=== PATIENT | male | born 1945 | race Caucasian/White ===

== ENCOUNTER 2020-07-24 14:54 | Emergency (ER) | payer BC, MEDICARE ==
[2020-07-24] MEDS ORDERED: HYDROmorphone 1 MG/ML CARPUJECT IM STA (15:15)
--- NOTE | 2020-07-24 15:16 | ED Physician Documentation ---
History of Present Illness - Stated complaint Stated Complaint: RIGHT HAND INJ - Chief complaint Chief Complaint: Ext Problem - History of Present Illness Timing: Prior to arrival - Additonal information Additional information: 74-year-old male presents the emergency department with acute right wrist pain. He unfortunately fell this afternoon on an outstretched hand and his wrist was hyperextended back. Since then he has had some swelling on the dorsum of the wrist and pain with movement. No history of previous injury. Patient is right- hand dominant. Did not strike his head or lose consciousness. Not anticoagulated. Review of Systems Constitutional: reports: Reviewed and negative Eyes: reports: Reviewed and negative Ears: reports: Reviewed and negative Nose: reports: Reviewed and negative Throat: reports: Reviewed and negative Cardiac: reports: Reviewed and negative Respiratory: reports: Reviewed and negative GI: reports: Reviewed and negative : reports: Reviewed and negative Skin: reports: Reviewed and negative Musculoskeletal: reports: Joint pain (right wrist), Extremity swelling (right wrist) Neurologic: reports: Reviewed and negative PD PAST MEDICAL HISTORY - Present Medications Home Medications: Ambulatory Orders Medication Instructions Recorded Confirmed Hydrocodone/Acetaminophen [[place] 1 each PO BID #15 tablet 07/24/20 5-325 Tablet] - Allergies Allergies/Adverse Reactions: Allergies Allergy/AdvReac Type Severity Reaction Status Date / Time morphine AdvReac Unknown Verified 07/24/20 15:12 PD ED PE EXPANDED - Extremities Extremities: Right hand (Swelling and tenderness on the dorsum of right hand distal to the ulna and radius. No snuffbox tenderness. 2+ radial pulse. 1+ ulnar. Able to make a week grasp. No obvious deformity) Results - Vitals Vitals: Vital Signs - 24 hr 07/24/20 15:00 Temperature 36.4 C L Heart Rate 84 Respiratory 18 Rate Blood Pressure 149/82 H O2 Saturation 100 Oxygen O2 Source Room air - Rads (name of study) right wrist Radiology: Final report received (Mildly impacted fracture of the distal radius with articular extension into the radiocarpal and distal radial ulnar joints. Mildly displaced ulnar styloid fracture.) PD MEDICAL DECISION MAKING - ED course Complexity details: reviewed results, re-evaluated patient, considered differential ED course: 74-year-old male presents the emergency department with acute right wrist pain after a FOOSH this afternoon. X-ray shows a mildly impacted and displaced right radial distal fracture as well as a mildly displaced ulnar styloid fracture. This gentleman was placed in a sugar tong splint. He does not live on [facility] therefore he was advised to call his primary care provider to request orthopedic referral in the next 7 to 10 days. Routine splint care and return precautions were discussed Departure - Departure Disposition: 01 Home, Self Care Clinical Impression: Distal radius fracture, right Qualifiers: Encounter type: initial encounter Fracture type: closed Fracture morphology: other fracture Qualified Code(s): S52.591A - Other fractures of lower end of right radius, initial encounter for closed fracture Fracture of ulnar styloid Qualifiers: Encounter type: initial encounter Fracture type: closed Fracture alignment: displaced Laterality: right Qualified Code(s): S52.611A - Displaced fracture of right ulna styloid process, initial encounter for closed fracture Condition: Stable Record reviewed to determine appropriate education?: Yes Instructions: ED Fx Wrist Ch Prescriptions: Hydrocodone/Acetaminophen [[place] 5-325 Tablet] 1 each PO BID #15 tablet Comments: Unfortunately the x-rays show that you have both a radial and ulnar styloid fracture in your right arm. We have placed you in a temporary splint. This should remain in place until you are seen by an orthopedic surgeon. If at any point it gets wet please return to any ER to have it replaced. I have prescribed a limited amount of hydrocodone to help with pain at home. Do not drive if taking this medication. You should be seen by any orthopedic doctor within the next 7 to 10 days. Please call your primary care doctor when you return to [place] to have this order obtained.
--- NOTE | 2020-07-24 15:48 | XRAY Report ---
PROCEDURE: Wrist 3 View RT INDICATIONS: pain after foosh TECHNIQUE: 3 views of the wrist were acquired. COMPARISON: Concurrent study of the hand. FINDINGS: Bones: There is a mildly comminuted fracture of the distal radius involving the metadiaphysis with a ssociated mild impaction. There is longitudinal extension to the radiocarpal and distal radioulnar [place] ints There is also mildly displaced ulnar styloid fracture. Soft tissues: There is mild periarticular soft tissue swelling. No suspicious soft tissue calcificat ions. IMPRESSION: 1. Mildly impacted fracture of the distal radius with articular extension to the radiocarpal and dist al radioulnar joints. 2. Mildly displaced ulnar styloid fracture. Reviewed by: Pascual Amaya MD on 07/24/2020 3:47 PM PST Approved by: Pascual Amaya MD on 07/24/2020 3:47 PM PST Station ID: [id number]
--- NOTE | 2020-07-24 16:17 | XRAY Report ---
PROCEDURE: Hand 2 View RT INDICATIONS: pain after foosh TECHNIQUE: 2 views of the hand acquired. COMPARISON: Concurrent study of the wrist. FINDINGS: Bones: There is a mildly comminuted fractures of the distal radius with articular extension to the ra diocarpal and distal radioulnar joints. There is also a mildly displaced fracture of the ulnar styloi d. Soft tissues: No suspicious soft tissue calcifications. There is periarticular soft tissue swelling at the wrist. IMPRESSION: 1. Mildly comminuted fracture of the distal radius with extension to the radiocarpal and distal radio ulnar joints. 2. Mildly displaced ulnar styloid fracture. Reviewed by: Pascual Amaya MD on 07/24/2020 4:16 PM PST Approved by: Pascual Amaya MD on 07/24/2020 4:16 PM PST Station ID: [id number]
[2020-07-24 16:20] VITALS: BP 140/78
== END 2020-07-24 16:20 | disposition home or self-care (01) ==
LOC: ED 14:54
DX: S52.591A Other fractures of lower end of right radius, initial encounter for closed fracture (principal); S52.611A Displaced fracture of right ulna styloid process, initial encounter for closed fracture; W13.3XXA Fall through floor, initial encounter
CPT/HCPCS: 73110; 73120; 96372; 99281; 99284; J1170